=== PATIENT | female | born 1950 | race Caucasian/White ===

== ENCOUNTER 2017-11-21 07:44 | Outpatient (CLI) | payer MEDICARE ==
--- NOTE | 2017-11-22 12:00 | Mammography Report ---
BILATERAL DIGITAL SCREENING MAMMOGRAM with CAD : 11/21/17 07:44:00 CLINICAL: Routine screening. COMPARISON:09/01/15 FINDINGS: The breasts are heterogeneously dense, which may obscure small masses.Right inner biopsy clip. No mass, architectural distortion or suspicious calcifications. IMPRESSION: No mammographic evidence of malignancy. BI-RADS CATEGORY: 2 -- Benign RECOMMENDATION: Routine mammographic screening in one year. COMMENT: Patient follow-up letters are generated by our [employer] application.
== END 2017-11-21 07:45 | disposition home or self-care (01) ==
LOC: MAMMO 07:44
PROVIDERS: ATTEND Internal Medicine
DX: Z12.31 Encounter for screening mammogram for malignant neoplasm of breast (principal)
CPT/HCPCS: 77067

== ENCOUNTER 2018-12-08 10:18 | Outpatient (CLI) | payer MEDICARE ==
--- NOTE | 2018-12-08 11:14 | Mammography Report ---
Bilateral mammogram: Compared to 11/21/17. CAD study utilized. Findings: Scattered lingular parenchyma bilaterally. No mass or microcalcification. Benign findings. Benign axillary nodes Impression: Benign findings. Followup recommended. BI-RADS CATEGORY: 2 = Benign ACR BI-RADS MAMMOGRAPHIC CODES: 0 = Needs additional imaging evaluation; 1 = Negative; 2 = Benign; 3 = Probably benign; 4 = Suspicious; 5 = Malignant; 6 = Known biopsy-proven malignancy COMMENT: 1. Dense breast tissue, i.e., adenosis, fibrocystic changes, etc., may obscure an underlying neoplasm. 2. Approximately 10% of cancers are not detected with mammography. 3. A negative mammography report should not delay biopsy if a clinically suspicious mass is present. COMMENT: Patient follow-up letters are generated in [employer].
== END 2018-12-08 10:19 | disposition home or self-care (01) ==
LOC: MAMMO 10:18
PROVIDERS: ATTEND Internal Medicine
DX: Z12.31 Encounter for screening mammogram for malignant neoplasm of breast (principal); E78.00 Pure hypercholesterolemia, unspecified
CPT/HCPCS: 77067